=== PATIENT | female | born 1960 | race Caucasian/White ===

== ENCOUNTER → 2017-07-05 | Outpatient (CLI) | payer OTHER | END | disposition home or self-care (01) | LOC: C.PAPS 14:38 | PROVIDERS: ATTEND Obstetrics & Gynecology | DX: Z12.4 Encounter for screening for malignant neoplasm of cervix (principal); N76.0 Acute vaginitis ==

== ENCOUNTER 2018-01-22 09:52 | Emergency (ER) | payer OTHER ==
[~2018-01-22] VITALS: Ht 162.6 cm; Wt 51.7 kg
[~2018-01-22 09:52] MED LIST: ALPR-412 PO; EST1 PO; FLUT0.15 NAE; HYDR-5688 PO; MISCCAP80 PO; MONT1TAB3 PO; ONDA4TAB46 PO; [UNRECOGNIZED DRUG - CODE] PO
[2018-01-22 10:02] VITALS: TEMP 36.7; Ht 162.6 cm; Wt 51.7 kg
[2018-01-22] MEDS ORDERED: ONDANSETRON INJ 2 MG/ML 2 ML VIAL IV STA (10:12)
[2018-01-22] MEDS ORDERED: SODIUM CHLORIDE 0.9% 1000ML 1,000 ML IV STA (10:12)
[2018-01-22 10:45] LABS: BASO % 0.5 %; BASO ABS # 0.02 K/uL (0-0.2); EOS % 1.8 %; EOS ABS # 0.07 K/uL (0-0.5); HEMOGLOBIN 12.2 g/dL (12.0-16.0); IG# 0.01 K/uL (0.00-0.02); LYMPH % 12.7 %; LYMPH ABS # 0.49 K/uL (1.2-3.4); MEAN CELL VOLUME 89.8 fL (80-100); MEAN CORPUSCULAR HEMOGLOBIN 30.4 pg (25-34); MEAN CORPUSCULAR HGB CONC 33.9 g/dl (32-36); MEAN PLATELET VOLUME 10.1 fL (7.4-10.4); MONO % 7.5 %; MONO ABS # 0.29 K/uL (0.11-0.59); NEUT % 77.2 %; NEUT ABS # 2.98 K/uL (1.4-6.5); PLATELET COUNT 163 K/uL (130-400); RED CELL DISTRIBUTION WIDTH CV 13.7 % (11.5-14.5); RED CELL DISTRIBUTION WIDTH SD 44.9 fL (36.4-46.3); WHITE BLOOD COUNT 3.86 K/uL (4.8-10.8)
[2018-01-22] MEDS ORDERED: OPTIRAY 320 IV PRN (10:45)
--- NOTE | 2018-01-22 10:45 | DIAGNOSTIC IMAGING REPORT ---
SINGLE VIEW CHEST CLINICAL HISTORY: General bleeding. FINDINGS: An AP, portable, upright chest radiograph is compared to study dated 11/26/2017. The examination is mildly degraded by portable technique and apical lordotic positioning. A left subclavian central venous infusion port is unchanged in position. The cardiomediastinal silhouette is unremarkable. The lungs and pleural spaces are clear. No pneumothorax is seen. The bony thorax is grossly intact. IMPRESSION: No active disease in the chest. Electronically signed by: Anjel Chau M.D. 01/22/2018 10:44 AM Dictated Date/Time: 01/22/2018 10:43 AM
[2018-01-22 10:54] LABS: PTT PATIENT 28.2 SECONDS (21.0-31.0)
[2018-01-22 11:09] LABS: ALBUMIN 3.7 gm/dl (3.4-5.0); ALKALINE PHOSPHATASE 59 U/L (45-117); ALT/SGPT 25 U/L (12-78); AST/SGOT 23 U/L (15-37); BLOOD UREA NITROGEN 11 mg/dl (7-18); CALCIUM 8.8 mg/dl (8.5-10.1); CARBON DIOXIDE 24 mmol/L (21-32); CKMB < 1.0 ng/ml (0.5-3.6); GLUCOSE 87 mg/dl (70-99); LIPASE 97 U/L (73-393); POTASSIUM 3.7 mmol/L (3.5-5.1); SODIUM 134 mmol/L (136-145); TOTAL PROTEIN 6.4 gm/dl (6.4-8.2)
[2018-01-22] MEDS ORDERED: POLY335019 PO (11:22)
--- NOTE | 2018-01-22 12:00 | DIAGNOSTIC IMAGING REPORT ---
CT SCAN OF THE ABDOMEN AND PELVIS WITH IV CONTRAST CLINICAL HISTORY: Diarrhea. Hematochezia. History of lymphoma. COMPARISON STUDY: PET/CT dated 11/10/2017. TECHNIQUE: Following the IV administration of 93 cc of Optiray 320, CT scan of the abdomen and pelvis is performed from the lung bases to the proximal femora. Images are reviewed in the axial, sagittal, and coronal planes. IV contrast was administered without complication. A dose lowering technique was utilized adhering to the principles of ALARA. CT DOSE: 257.81 mGy.cm FINDINGS: Lung bases: The heart is normal in size and there is a small pericardial effusion. No airspace consolidation or pleural effusion is identified. There is a 6 mm left lower lobe pulmonary nodule seen image #29. A 6 mm right lower lobe pulmonary nodule seen on image #32. Liver: The contrast-enhanced liver is normal in size, contour, and attenuation. There is no intrahepatic biliary ductal dilatation. The hepatic veins and portal veins are patent. Small hepatic cysts measure up to 9 mm. Additional subcentimeter hepatic hypodensities also likely represent cysts but are too small for definitive characterization. Gallbladder: Unremarkable. Spleen: Normal in size and attenuation, measuring up to 8.5 cm in length. Pancreas: Unremarkable. Adrenal glands: Unremarkable. Kidneys: The contrast enhanced kidneys are normal in size and without hydronephrosis. The kidneys enhance symmetrically. Abdominal vasculature: The abdominal aorta is normal in course and caliber noting scattered foci of atherosclerotic calcification. Bowel: Mild wall thickening suggested throughout the colon. There is only faint pericolonic stranding. The appearance suggests a mild nonspecific colitis. There are scattered colonic diverticula without CT evidence of acute diverticulitis. No bowel obstruction is seen. The appendix is well-visualized and normal. Peritoneum: There is no intraperitoneal free air or abdominal ascites. There is a fat-containing umbilical hernia. Lymphadenopathy: Cardiophrenic, retroperitoneal, mesenteric, comment bilateral iliac chain lymphadenopathy has almost completely resolved from 11/10/2017. The largest retroperitoneal lymph node is a left periaortic region seen on image #149 and measures 1.8 x 0.9 cm. The largest residual iliac chain lymph node is seen on the left on image #215 and measures 2.1 x 1.5 cm. Mild stranding in the retroperitoneum is likely treatment related. Pelvic viscera: The bladder is normal as visualized. The uterus is surgically absent. No adnexal lesion is seen. Trace free fluid is present in the cul-de-sac. Skeletal structures: The skeletal structures are osteopenic. No lytic or blastic lesions are seen. IMPRESSION: 1. Findings suggest a mild nonspecific pancolitis, likely on an infectious or inflammatory basis. Clinical correlation will be required. 2. Positive response to treatment. Abdominopelvic lymphadenopathy has almost completely resolved as compared to 11/10/2017 PET examination. See above. 3. There are 6 mm pulmonary nodules present at both lung bases. These were likely present on the recent PET CT but direct comparison is difficult due to differences in technique. These can be followed as per the Fleischner criteria. See below. 4. Small pericardial effusion. 5. The spleen is normal in size. 6. There is trace nonspecific free fluid in the cul-de-sac. 7. Additional findings as above. Please refer to below summary of Fleischner criteria recommendations for follow-up of incidental CT nodules (Josie Nelson, Guidelines for management of small pulmonary nodules detected on CT scans: A statement from the Fleischner Society, Radiology 237: [phone].) SOLID NODULES Solitary nodule size: <6 mm * low risk patients: no follow-up needed * high risk patients: optional CT at 12 months Solitary nodule size: 6-8 mm * low risk patients: follow-up at 6-12 months, then consider further follow-up at 18-24 months * high risk patients: initial follow-up CT at 6-12 months and then at 18-24 months if no change Solitary nodule size: >8 mm * either low or high risk patients - consider follow-up CT at 3 months, and/or CT-PET, and/or biopsy Multiple nodules size: <6 mm * low risk patients: no routine follow-up * high risk patients: optional CT at 12 months Multiple nodules size: 6-8 mm * low risk patients: follow-up at 3-6 months, then consider further follow-up at 18-24 months * high risk patients: follow-up at 3-6 months, then at 18-24 months if no change Multiple nodules size: >8 mm * low risk patients: follow-up at 3-6 months, then consider further follow-up at 18-24 months * high risk patients: follow-up at 3-6 months, then at 18-24 months if no change Note: newly detected indeterminate nodule in persons 35 years of age or older. * low risk patients: minimal or absent history of smoking and/or other known risk factors * high risk patients: history of smoking or of other known risk factors (e.g. first degree relative with lung cancer, or exposure to asbestos, radon, uranium) * if a nodule up to 8 mm is partly solid or is ground glass further follow-up is required after 24 months to exclude possible slow growing adenocarcinoma (ARVIND) SUBSOLID NODULES Solitary pure ground-glass nodule * nodule size <6 mm - no CT follow-up required * nodule size >=6 mm - follow-up CT at 6-12 months, then every 2 years until 5 years Solitary part-solid nodule * nodule size <6 mm - no CT follow-up required * nodule size >=6 mm - follow-up CT at 3-6 months. If unchanged, and solid component remains <6 mm, then annual follow-up for 5 years Multiple subsolid nodules * nodule size <6 mm - follow-up CT at 3-6 months, consider further follow-up at 2 and 4 years if stable * nodule size >=6 mm - follow-up CT at 3-6 months, subsequent management based on the most suspicious nodule(s) Electronically signed by: Anjel Chau M.D. 01/22/2018 11:59 AM Dictated Date/Time: 01/22/2018 11:47 AM
[2018-01-22] MEDS ORDERED: CIPR-255 PO (12:35)
[2018-01-22] MEDS ORDERED: METR-163 PO (12:35)
[2018-01-22] MEDS ORDERED: CIPROFLOXACIN 500 MG TAB PO STA (12:37)
[2018-01-22] MEDS ORDERED: METRONIDAZOLE 250 MG TAB PO STA (12:37)
--- NOTE | 2018-01-22 12:37 | EMERGENCY ROOM VISIT NOTE ---
History Report prepared by Zay: Genesis Pierce Under the Supervision of: Dr. Alphonso Fletcher D.O. First contact with patient: 10:04 Chief Complaint: RECTAL BLEEDING Stated Complaint: BLOODY BOWEL MOVEMENTS, REF'D BY DR PARRA History of Present Illness The patient is a 57 year old female who presents to the Emergency Room with complaints of rectal bleeding this morning. She reports that she has had 5 bowel movements this morning and states that they have had clots of blood in them. The patient states that she is going through chemotherapy since November for lymphoma with Dr. Forte. She reports that she was diagnosed in October. The patient states that she has had loose bowel movements for the last week. She reports that she saw her family doctor on Wednesday and had blood work done and that she also called Dr. Forte this morning who referred the patient here. She states that her blood work showed that she was somewhat anemic and that her lymphocytes were low. The patient also reports having abdominal cramping but denies vomiting. The patient also reports that she recently started a bland diet. She reports a history of a hysterectomy but no other medical problems. The patient notes that she was in [facility] in August and had diarrhea then. Source of History: patient Onset: this morning Position: other (rectum) Quality: other (bleeding) Associated Symptoms: + abdominal pain (cramping), No vomiting Review of Systems See HPI for pertinent positives & negatives. A total of 10 systems reviewed and were otherwise negative. Past Medical & Surgical Medical Problems: (1) Lymphoma Surgical Problems: (1) H/O: hysterectomy Family History Patient reports no known family medical history. Social History Smoking Status: Never Smoker Marital Status: Housing Status: lives with significant other Current/Historical Medications Scheduled Ciprofloxacin Hcl (Cipro), 500 MG PO BID Cobalamine Combinations (Vitamin B12/Folic Acid), 1 TAB PO DAILY Estradiol (Estradiol), 1 TAB PO DAILY Fluticasone Propionate (Nasal) (Flonase Allergy Relief), 1 SPRAY KELTON DAILY Metronidazole (Flagyl), 500 MG PO BID Montelukast Sodium (Singulair), 1 TAB PO DAILY Probiotic Product (Probiotic), 1 CAP PO DAILY Scheduled PRN Alprazolam (Alprazolam), 1 TAB PO BID PRN for Anxiety Hydrocodone/Acetaminophen 5MG/325MG ([place] 5MG/325MG), 1-2 TABLET PO Q4H PRN for Pain Ondansetron Hcl (Zofran), 4 MG PO Q4 PRN for Nausea Polyethylene Glycol 3350 (Miralax), 17 GM PO DAILY PRN for Constipation Allergies Coded Allergies: Clarithromycin (Verified Allergy, Intermediate, HEART RACING, 01/22/18) Adhesives (Verified Allergy, Mild, RASH, 01/22/18) Amoxicillin (Verified Allergy, Mild, RASH, 01/22/18) Doxycycline (Verified Allergy, Mild, GI SYMPTOMS, 01/22/18) Chlorhexidine (Verified Allergy, Unknown, "RASH", 01/22/18) Physical Exam Vital Signs Date Time Temp Pulse Resp B/P (MAP) Pulse Ox O2 Delivery O2 Flow Rate FiO2 01/22/18 12:37 73 18 140/71 98 Room Air 01/22/18 11:13 71 18 112/71 100 Room Air 01/22/18 10:46 79 01/22/18 10:02 36.7 92 18 119/85 100 Room Air Physical Exam CONSTITUTIONAL/VITAL SIGNS: Reviewed / noted above. GENERAL: Non-toxic in appearance. INTEGUMENTARY: Warm, dry, and [place]. HEAD: Normocephalic. EYES: without scleral icterus or trauma. ENT/OROPHARYNX: clear and moist. LYMPHADENOPATHY/NECK: Is supple without lymphadenopathy or meningismus. RESPIRATORY: Lungs clear and equal. CARDIOVASCULAR: Regular rate and rhythm. GI/ABDOMEN: Soft and nontender. No organomegaly or pulsatile mass. No rebound or guarding. Normal bowel sounds. EXTREMITIES: Warm and well perfused. BACK: No CVA tenderness. NEUROLOGICAL: Intact without focal deficits. PSYCHIATRIC: normal affect. MUSCULOSKELETAL: Normally developed with good muscle tone. Medical Decision & Procedures ER Provider Diagnostic Interpretation: Radiology results as stated below per my review and radiologist interpretation: SINGLE VIEW CHEST CLINICAL HISTORY: General bleeding. FINDINGS: An AP, portable, upright chest radiograph is compared to study dated 11/26/2017. The examination is mildly degraded by portable technique and apical lordotic positioning. A left subclavian central venous infusion port is unchanged in position. The cardiomediastinal silhouette is unremarkable. The lungs and pleural spaces are clear. No pneumothorax is seen. The bony thorax is grossly intact. IMPRESSION: No active disease in the chest. Electronically signed by: Anjel Chau M.D. 01/22/2018 10:44 AM Dictated Date/Time: 01/22/2018 10:[address] SCAN OF THE ABDOMEN AND PELVIS WITH IV CONTRAST CLINICAL HISTORY: Diarrhea. Hematochezia. History of lymphoma. COMPARISON STUDY: PET/CT dated 11/10/2017. TECHNIQUE: Following the IV administration of 93 cc of Optiray 320, CT scan of the abdomen and pelvis is performed from the lung bases to the proximal femora. Images are reviewed in the axial, sagittal, and coronal planes. IV contrast was administered without complication. A dose lowering technique was utilized adhering to the principles of ALARA. CT DOSE: 257.81 mGy.cm FINDINGS: Lung bases: The heart is normal in size and there is a small pericardial effusion. No airspace consolidation or pleural effusion is identified. There is a 6 mm left lower lobe pulmonary nodule seen image #29. A 6 mm right lower lobe pulmonary nodule seen on image #32. Liver: The contrast-enhanced liver is normal in size, contour, and attenuation. There is no intrahepatic biliary ductal dilatation. The hepatic veins and portal veins are patent. Small hepatic cysts measure up to 9 mm. Additional subcentimeter hepatic hypodensities also likely represent cysts but are too small for definitive characterization. Gallbladder: Unremarkable. Spleen: Normal in size and attenuation, measuring up to 8.5 cm in length. Pancreas: Unremarkable. Adrenal glands: Unremarkable. Kidneys: The contrast enhanced kidneys are normal in size and without hydronephrosis. The kidneys enhance symmetrically. Abdominal vasculature: The abdominal aorta is normal in course and caliber noting scattered foci of atherosclerotic calcification. Bowel: Mild wall thickening suggested throughout the colon. There is only faint pericolonic stranding. The appearance suggests a mild nonspecific colitis. There are scattered colonic diverticula without CT evidence of acute diverticulitis. No bowel obstruction is seen. The appendix is well-visualized and normal. Peritoneum: There is no intraperitoneal free air or abdominal ascites. There is a fat-containing umbilical hernia. Lymphadenopathy: Cardiophrenic, retroperitoneal, mesenteric, comment bilateral iliac chain lymphadenopathy has almost completely resolved from 11/10/2017. The largest retroperitoneal lymph node is a left periaortic region seen on image #149 and measures 1.8 x 0.9 cm. The largest residual iliac chain lymph node is seen on the left on image #215 and measures 2.1 x 1.5 cm. Mild stranding in the retroperitoneum is likely treatment related. Pelvic viscera: The bladder is normal as visualized. The uterus is surgically absent. No adnexal lesion is seen. Trace free fluid is present in the cul-de-sac. Skeletal structures: The skeletal structures are osteopenic. No lytic or blastic lesions are seen. IMPRESSION: 1. Findings suggest a mild nonspecific pancolitis, likely on an infectious or inflammatory basis. Clinical correlation will be required. 2. Positive response to treatment. Abdominopelvic lymphadenopathy has almost completely resolved as compared to 11/10/2017 PET examination. See above. 3. There are 6 mm pulmonary nodules present at both lung bases. These were likely present on the recent PET CT but direct comparison is difficult due to differences in technique. These can be followed as per the Fleischner criteria. See below. 4. Small pericardial effusion. 5. The spleen is normal in size. 6. There is trace nonspecific free fluid in the cul-de-sac. 7. Additional findings as above. Please refer to below summary of Fleischner criteria recommendations for follow-up of incidental CT nodules (Josie Nelson, Guidelines for management of small pulmonary nodules detected on CT scans: A statement from the Fleischner Society, Radiology 237: [phone].) SOLID NODULES Solitary nodule size: <6 mm * low risk patients: no follow-up needed * high risk patients: optional CT at 12 months Solitary nodule size: 6-8 mm * low risk patients: follow-up at 6-12 months, then consider further follow-up at 18-24 months * high risk patients: initial follow-up CT at 6-12 months and then at 18-24 months if no change Solitary nodule size: >8 mm * either low or high risk patients - consider follow-up CT at 3 months, and/or CT-PET, and/or biopsy Multiple nodules size: <6 mm * low risk patients: no routine follow-up * high risk patients: optional CT at 12 months Multiple nodules size: 6-8 mm * low risk patients: follow-up at 3-6 months, then consider further follow-up at 18-24 months * high risk patients: follow-up at 3-6 months, then at 18-24 months if no change Multiple nodules size: >8 mm * low risk patients: follow-up at 3-6 months, then consider further follow-up at 18-24 months * high risk patients: follow-up at 3-6 months, then at 18-24 months if no change Note: newly detected indeterminate nodule in persons 35 years of age or older. * low risk patients: minimal or absent history of smoking and/or other known risk factors * high risk patients: history of smoking or of other known risk factors (e.g. first degree relative with lung cancer, or exposure to asbestos, radon, uranium) * if a nodule up to 8 mm is partly solid or is ground glass further follow-up is required after 24 months to exclude possible slow growing adenocarcinoma (ARVIND) SUBSOLID NODULES Solitary pure ground-glass nodule * nodule size <6 mm - no CT follow-up required * nodule size >=6 mm - follow-up CT at 6-12 months, then every 2 years until 5 years Solitary part-solid nodule * nodule size <6 mm - no CT follow-up required * nodule size >=6 mm - follow-up CT at 3-6 months. If unchanged, and solid component remains <6 mm, then annual follow-up for 5 years Multiple subsolid nodules * nodule size <6 mm - follow-up CT at 3-6 months, consider further follow-up at 2 and 4 years if stable * nodule size >=6 mm - follow-up CT at 3-6 months, subsequent management based on the most suspicious nodule(s) Electronically signed by: Anjel Chau M.D. 01/22/2018 11:59 AM Dictated Date/Time: 01/22/2018 11:47 AM Laboratory Results 01/22/18 10:32 Red Blood Count 4.01, Mean Corpuscular Volume 89.8, Mean Corpuscular Hemoglobin 30.4, Mean Corpuscular Hemoglobin Concent 33.9, Mean Platelet Volume 10.1, Neutrophils (%) (Auto) 77.2, Lymphocytes (%) (Auto) 12.7, Monocytes (%) (Auto) 7.5, Eosinophils (%) (Auto) 1.8, Basophils (%) (Auto) 0.5, Neutrophils # (Auto) 2.98, Lymphocytes # (Auto) 0.49, Monocytes # (Auto) 0.29, Eosinophils # (Auto) 0.07, Basophils # (Auto) 0.02 01/22/18 10:32 Test 01/22/18 10:32 White Blood Count 3.86 K/uL (4.8-10.8) Red Blood Count 4.01 M/uL (4.2-5.4) Hemoglobin 12.2 g/dL (12.0-16.0) Hematocrit 36.0 % (37-47) Mean Corpuscular Volume 89.8 fL (80-100) Mean Corpuscular Hemoglobin 30.4 pg (25-34) Mean Corpuscular Hemoglobin Concent 33.9 g/dl (32-36) Platelet Count 163 K/uL (130-400) Mean Platelet Volume 10.1 fL (7.4-10.4) Neutrophils (%) (Auto) 77.2 % Lymphocytes (%) (Auto) 12.7 % Monocytes (%) (Auto) 7.5 % Eosinophils (%) (Auto) 1.8 % Basophils (%) (Auto) 0.5 % Neutrophils # (Auto) 2.98 K/uL (1.4-6.5) Lymphocytes # (Auto) 0.49 K/uL (1.2-3.4) Monocytes # (Auto) 0.29 K/uL (0.11-0.59) Eosinophils # (Auto) 0.07 K/uL (0-0.5) Basophils # (Auto) 0.02 K/uL (0-0.2) RDW Standard Deviation 44.9 fL (36.4-46.3) RDW Coefficient of Variation 13.7 % (11.5-14.5) Immature Granulocyte % (Auto) 0.3 % Immature Granulocyte # (Auto) 0.01 K/uL (0.00-0.02) Prothrombin Time 10.4 SECONDS (9.0-12.0) Prothromb Time International Ratio 1.0 (0.9-1.1) Activated Partial Thromboplast Time 28.2 SECONDS (21.0-31.0) Partial Thromboplastin Ratio 1.1 Anion Gap 8.0 mmol/L (3-11) Est Creatinine Clear Calc Drug Dose 70.6 ml/min Estimated GFR () 109.9 Estimated GFR (Non- 94.8 BUN/Creatinine Ratio 15.5 (10-20) Calcium Level 8.8 mg/dl (8.5-10.1) Total Bilirubin 0.4 mg/dl (0.2-1) Direct Bilirubin 0.2 mg/dl (0-0.2) Aspartate Amino Transf (AST/SGOT) 23 U/L (15-37) Alanine Aminotransferase (ALT/SGPT) 25 U/L (12-78) Alkaline Phosphatase 59 U/L (45-117) Total Creatine Kinase 43 U/L (26-192) Creatine Kinase MB < 1.0 ng/ml (0.5-3.6) Creatine Kinase MB Ratio (0-3.0) Troponin I < 0.015 ng/ml (0-0.045) Total Protein 6.4 gm/dl (6.4-8.2) Albumin 3.7 gm/dl (3.4-5.0) Lipase 97 U/L (73-393) Laboratory results as stated above per my review. Medications Administered Medications (Trade) Dose Ordered Sig/Zuleika Route Start Time Stop Time Status Last Admin Dose Admin Sodium Chloride 1,000 ml @ 500 mls/hr Q2H STAT IV 01/22/18 10:12 01/22/18 12:11 DC 01/22/18 10:49 500 MLS/HR Ondansetron HCl (Zofran Inj) 4 mg NOW STAT IV 01/22/18 10:12 01/22/18 10:17 DC 01/22/18 10:49 4 MG ECG Per My Interpretation Indication: abdominal pain Rate (beats per minute): 78 Rhythm: normal sinus Findings: no ectopy, other (no ST elevations) ED Course 1008: Previous medical records were reviewed. The patient was evaluated in room B9. A complete history and physical examination was performed. 1012: Ordered Zofran Inj 4 mg IV, Sodium Chloride 1000 ml @ 500 mls/hr IV. 1237: Ordered Flagyl Tab 500 mg PO. 1240: On reevaluation, the patient is resting. I discussed the results and findings with the patient. She verbalized agreement of the treatment plan. She was discharged home. Medical Decision Differential diagnosis: Etiologies such as diverticulosis, AVM, coagulopathy, colitis, inflammatory bowel disease, malignancy, Hiwot-Munoz tear, esophagitis, peptic ulcer disease , variceal bleed, gastritis, epistaxis, fissure, hemorrhoids, as well as others were entertained. This is a 57-year-old female who presents to the ED with a chief complaint of bloody bowel movements. The patient is currently undergoing chemotherapy for lymphoma. She was diagnosed with this in October. She sees Dr. Forte. The patient states that she has had some loose bowels for about a week. The patient reports that she has tried Imodium starting on Wednesday. Today she had 5 bowel movements that were mostly bloody with small clots. She states that the initial one was small, then the second one was larger in the last several were small amounts. She does report some associated abdominal cramping. The patient denies any other significant symptoms. Her physical exam was unremarkable. Her CBC does not show any significant anemia. Her hemoglobin was 11.6 on the first. Today's 12.2. Complete metabolic panel was normal. Chest x-ray was negative for acute disease. CT scan of the abdomen reveals findings suggesting a garcia colitis. There was improvement of the abdominal lymphadenopathy. The patient will be discharged with a short course of Cipro and Flagyl for the pancolitis. She will monitor symptoms and is felt to be stable for discharge and outpatient follow-up. She was to return should she have lightheadedness, dizziness, near syncope or syncope or other concerns. Medication Reconcilliation Current Medication List: was personally reviewed by me Blood Pressure Screening Patient's blood pressure: Normal blood pressure Impression Primary Impression: GI bleed Additional Impressions: Pancolitis Lymphoma Scribe Attestation The scribe's documentation has been prepared under my direction and personally reviewed by me in its entirety. I confirm that the note above accurately reflects all work, treatment, procedures, and medical decision making performed by me. Departure Information Dispostion Home / Self-Care Prescriptions Metronidazole (Flagyl) 500 Mg Tab 500 MG PO BID, #6 TAB Prov: Alphonso Fletcher D.O. 01/22/18 Ciprofloxacin Hcl (CIPRO) 500 Mg Tab 500 MG PO BID, #6 TAB Prov: Alphonso Fletcher D.O. 01/22/18 Referrals Harsha Hunt M.D. (PCP) Forms HOME CARE DOCUMENTATION FORM, IMPORTANT VISIT INFORMATION, WORK / SCHOOL INSTRUCTIONS Patient Instructions My [facility] Additional Instructions Your CT scan today reveals findings suggesting a pancolitis (colon infection/ inflammation). This is likely the cause of your intestinal bleeding. Her hemoglobin today is 12.2. It was 11.6 on the first. Return to the emergency department for lightheadedness, dizziness, chest pains, shortness of breath, passing out or other concerns or worsening. Return to the emergency department for increasing intestinal bleeding. Cipro and Flagyl as prescribed for the pancolitis. Follow-up with your doctor for further care and evaluation in 2-3 days. Return to the emergency department for worsening or new symptoms or any concerns. You have been examined and treated today on an emergency basis only. This is not a substitute for, or an effort to provide, complete comprehensive medical care. It is impossible to recognize and treat all injuries or illnesses in a single emergency department visit. It is therefore important that you follow up closely with your doctor. Call as soon as possible for an appointment. Problem Qualifiers
[2018-01-22 13:17] VITALS: BP 121/65; PULSE 80; O2SAT 99
== END 2018-01-22 13:31 | disposition home or self-care (01) ==
LOC: C.EDB 09:53
DX: K51.00 Ulcerative (chronic) pancolitis without complications (principal); C85.90 Non-Hodgkin lymphoma, unspecified, unspecified site; Z79.899 Other long term (current) drug therapy; Z90.710 Acquired absence of both cervix and uterus; Z88.1 Allergy status to other antibiotic agents; Z88.8 Allergy status to other drugs, medicaments and biological substances